=== PATIENT | female | born 1995 | race Caucasian/White ===

== ENCOUNTER → 2020-09-12 | Outpatient (CLI) | payer SELFPAY ==
--- NOTE | 2020-09-12 15:01 | RADIOLOGY REPORT (SQ) ---
EXAM DESCRIPTION: U/S [id number] TRNABD 1GES W/ODOP IMAGES COMPLETED DATE/TIME: 09/12/2020 2:07 pm REASON FOR STUDY: (Z34.81)ENCOUNTER FOR SUPRVSN OF NORMAL , FIRST TRIMESTER Z34.81 ENCOUNT ER FOR SUPRVSN OF NORMAL , FIRST TRIM COMPARISON: None. TECHNIQUE: Transabdominal static and realtime grayscale images acquired of the pelvis. Additional se lected spectral and color Doppler images recorded. All images stored on PACs. [facility] [place] Not available. CLINICAL DATES: LMP is unknown. LIMITATIONS: None. FINDINGS: FETUS: Single Living intrauterine . ULTRASOUND EGA: 10 weeks 6 days. ULTRASOUND JAYDEN: 04/04/2021. CRL: 3.91 cm. FHR: 171 beats per minute. SURVEY: Too early to assess. AMNIOTIC FLUID: Too early to assess. PLACENTA: Too early to assess. SUBCHORIONIC BLEED: No. UTERUS: The uterus measures 11.8 x 8.3 x 6.6 cm. There is an intrauterine gestational sac that conta ins an embryo and a yolk sac. CERVICAL LENGTH: 2.8 cm. Closed. RIGHT ADNEXA: The right ovary measures 3.1 x 1.9 x 2.3 cm and on Doppler there is intact color flow w ithin the ovarian stroma. There is no adnexal mass. LEFT ADNEXA: The left ovary measures 1.7 x 1.8 x 1.4 cm and on Doppler there is intact color flow wit hin the ovarian stroma. There is no adnexal mass. FREE FLUID: None. OTHER: No other finding. IMPRESSION: LIVE INTRAUTERINE . EGA 10 weeks 6 days. Trimester of : First trimester - 0 to 13 weeks. TECHNICAL DOCUMENTATION: JOB ID: [id number] [employer]- All Rights Reserved rev-02/07 Reading location - IP/workstation name: [email or web address]
== END ==
LOC: RAD 13:34
PROVIDERS: ATTEND Midwife
DX: Z34.81 Encounter for supervision of other normal pregnancy, first trimester (principal); Z3A.10 10 weeks gestation of pregnancy
CPT/HCPCS: 76801